=== PATIENT | female | born 1975 | race Caucasian/White ===

== ENCOUNTER 2019-09-06 10:39 | Emergency (ER) | payer BC, OTHER ==
[2019-09-06 10:45] VITALS: BP 121/83; PULSE 85; TEMP 98
--- NOTE | 2019-09-06 11:10 | XR ---
EXAMINATION TYPE: XR hand complete LT DATE OF EXAM: 09/06/2019 COMPARISON: NONE HISTORY: 43-year-old female base of thumb pain TECHNIQUE: 3 views FINDINGS: No acute fracture, subluxation, dislocation seen. No periostitis or osteolysis. IMPRESSION: No acute osseous abnormality seen.
[2019-09-06] MEDS ORDERED: KETOROLAC 60 MG/2 ML VIAL IM STA (11:13)
--- NOTE | 2019-09-06 11:14 | ED ---
Upper Extremity HPI - General Chief Complaint: Extremity Injury, Upper Stated Complaint: thumb pain Time Seen by Provider: 09/06/19 10:47 Source: patient Mode of arrival: ambulatory Limitations: no limitations - History of Present Illness Initial Comments: 43-year-old female presented for chief complaint of left proximal thumb pain on the extensor surface. Patient states that she has had increase housework and having up the children since she has been off secondary to headache over 19 infection. She states she has been noticing increasing pain at the base of her left thumb. Patient denies any redness any swelling dizzy fevers chills or general malaise. Patient denies any limitation to range of motion just states that it is tender denies any numbness tingling loss of sensation. Patient denies any other complaints review systems negative - Related Data Home Medications Medication Instructions Recorded Confirmed Butalb/Acetaminophen/Caffeine 1 - 2 each PO DIRECTED PRN 03/23/14 03/26/14 [Fioricet 50-325-40] Diazepam [Valium] 5 mg PO DIRECTED PRN 03/23/14 03/26/14 diphenhydrAMINE [Benadryl] 25 mg PO DAILY PRN 03/23/14 03/26/14 Allergies Allergy/AdvReac Type Severity Reaction Status Date / Time morphine Allergy Vomiting Verified 09/06/19 10:45 cefixime [From Suprax] AdvReac Unknown Verified 09/06/19 10:45 Review of Systems ROS Statement: Those systems with pertinent positive or pertinent negative responses have been documented in the HPI. ROS Other: All systems not noted in ROS Statement are negative. Past Medical History Additional Past Medical History / Comment(s): osteopenia History of Any Multi-Drug Resistant Organisms: None Reported Past Surgical History: Orthopedic Surgery Past Psychological History: Anxiety Smoking Status: Never smoker Past Alcohol Use History: Occasional Past Drug Use History: None Reported General Exam - General Exam Comments Initial Comments: General: The patient is awake and alert, in no distres Eye: +3 mm pupils are equal, round and reactive to light, extra-ocular movements are intact. No nystagmus. There is normal conjunctiva bilaterally. No signs of icterus. . Cardiovascular: There is a regular rate and rhythm. No murmur, rub or gallop is appreciated. Respiratory: Lungs are clear to auscultation, respirations are non-labored, breath sounds are equal. No wheezes, stridor, rales, or rhonchi. Gastrointestinal: Soft, non-distended, non-tender abdomen without masses or organomegaly noted. There is no rebound or guarding present. Musculoskeletal: Normal inspection of the palms bilaterally Normal ROM, but tenderness at the MCP joint. Strength 5/5 athe MCP, wrist and IP joint. Sensation intact. Radial pulses equal bilaterally 2+. Neurological: A&O x 3. CN II-XII intact grossly, There are no obvious motor or sensory deficits. Coordination appears grossly intact. Speech is normal. Skin: Skin is warm and dry and no rashes or lesions are noted. Psychiatric: Cooperative, appropriate mood & affect, normal judgment. Limitations: no limitations Course Vital Signs 09/06/19 09/06/19 10:42 11:31 Temperature 98 F Pulse Rate 85 Respiratory 18 20 Rate Blood Pressure 121/83 O2 Sat by Pulse 100 Oximetry Medical Decision Making - Medical Decision Making Normal exam BILATERALLY x-ray negative patient neurovascularly intact. Probable tendonitis. Recommended symptomatic treatment. Disposition Clinical Impression: Thumb pain Disposition: HOME SELF-CARE Condition: Good Instructions (If sedation given, give patient instructions): Tendinitis (ED) Additional Instructions: Please use medication as discussed. Please follow-up with family doctor in the next 2 days.. Please return to emergency room if the symptoms increase or worsen or for any other concerns. Is patient prescribed a controlled substance at d/c from ED?: No Referrals: Saranya Oliver MD [Primary Care Provider] - 1-2 days Time of Disposition: 11:14
[2019-09-06 11:33] VITALS: RESP 20
== END 2019-09-06 11:35 | disposition home or self-care (01) ==
LOC: EC 10:39
DX: M79.645 Pain in left finger(s) (principal); M85.80 Other specified disorders of bone density and structure, unspecified site; Z88.5 Allergy status to narcotic agent; Z88.1 Allergy status to other antibiotic agents; Z98.890 Other specified postprocedural states
CPT/HCPCS: 73130; 99283; 96372; J1885

== ENCOUNTER → 2022-03-24 | Outpatient (CLI) | payer OTHER ==
--- NOTE | 2022-03-24 13:52 | US ---
EXAMINATION TYPE: US pelvic complete DATE OF EXAM: 03/24/2022 COMPARISON: NONE CLINICAL HISTORY: R10.2 pelvic pain. Patient states having an ablation done a while ago and feels it isn't working any more. Spotting. TECHNIQUE: Transabdominal (TA). Transabdominal sonographic images of the pelvis were acquired. Date of LMP: Unknown, EXAM MEASUREMENTS: Uterus: 8.9 x 5.7 x 4.3 cm Endometrial Stripe: 0.3 cm Right Ovary: 2.8 x 1.6 x 1.1 cm Left Ovary: 2.8 x 2.0 x 1.7 cm 1. Uterus: Anteverted Heterogenous. No prominent masses or lesions seen. 2. Endometrium: visualized, wnl 3. Right Ovary: wnl 4. Left Ovary: wnl 5. Bilateral Adnexa: no free fluid, wnl 6. Posterior cul-de-sac: no free fluid IMPRESSION: 1. No acute pelvic process. 2. Endometrial thickness is within normal limits. 3. Heterogenous appearance to the uterus which can be seen with fibroid changes versus adenomyosis.
== END | disposition home or self-care (01) ==
LOC: RADUSWWP 12:55
PROVIDERS: ATTEND Obstetrics & Gynecology
DX: R10.2 Pelvic and perineal pain (principal)
CPT/HCPCS: 76856